=== PATIENT | male | born 1950 | race Caucasian/White ===

== ENCOUNTER 2017-07-12 05:40 | Day surgery (SDC) | payer BC, SELFPAY ==
[2017-07-12] VITALS (7 sets, daily range): BP systolic 103–133; BP diastolic 59–70; PULSE 55–64; RESP 16; TEMP 36.1–36.6; O2SAT 93–98; BMI 26.6
[2017-07-12] MEDS: Cefazolin 1 GM/50 ML BAG IV (07:08)
[2017-07-12] MEDS: Bupivacaine Mpf 0.5% 30 ML VIAL (07:30)
--- NOTE | 2017-07-12 07:34 | OP.PCM_ITS ---
Report of Operation Date of Procedure: 07/12/17 Pre-Operative Diagnosis: Left carpal tunnel syndrome Post-Operative Diagnosis: Left carpal tunnel syndrome Surgery/Procedure Performed:: Left carpal tunnel release Description of Surgical Findings:: Complete release transverse carpal ligament fleet service clerk: None Type of Anesthesia:: Block,Luca Anesthesiologist: Bryce Chamberlain Special Medications: 1 g Ancef Estimated Blood Loss (mL): 1 Fluids Replaced: 500 ml Description of Procedure: Brief history operative indications: 56-year-old male with failed conservative treatment of left carpal tunnel syndrome patient wished to proceed with left open carpal tunnel release. After discussing risks and benefits including but not limited to blood loss, DVTs, PEs , neurovascular damage, infection, hematoma and general risk of anesthesia, the patient demonstrated understanding wish to proceed with left open carpal tunnel release Procedure: On the date of the procedure, the patient's left upper extremity was marked in the preoperative area. Patient was taken back to the operating room, where the tourniquet was placed on the right upper extremity. Patient was given light sedation. All bony prominences are identified well-padded. Anesthesia assumed control C-spine and airway and remained in control throughout the remainder the procedure. Luca block was administered by anesthesia. The left upper extremity was prepped in sterile fashion. Surgeon then scrub. Upon reentering the room, the left upper extremity was prepped in a standard orthopedic fashion. A timeout was called and everyone agreed upon the side, the site, the procedure to be performed, patient identity and antibiotics given. The incision was marked out. Incision was taken at the skin subtenons tissue fat down to fascia. Fascia was then lightly tethered until the median nerve was visible. A Paradise was placed proximally and distally, and then scissors were placed proximally and distally to release the transverse carpal ligament. During the release the others were never completely closed. The Paradise was then placed proximally and distally once more to verify the transverse carpal ligament had been adequately released. The wound was then copiously irrigated out with normal saline. Wound was then closed using 3-0 nylon suture. 10 cc of 50-50 mixture of 1% lidocaine and 0.5% Sensorcaine without epinephrine injection was given. Xeroform dressing was placed, sterile dressing was placed, compressive dressing was placed. Tourniquet was let down. Volar splint was placed. Patient was awakened by anesthesia and transferred to the PACU for recovery. Postoperative plan: The patient will follow up in 2 weeks for removal splint removal sutures. At that time if they are doing well they will follow-up as needed. - Complications none - Admit VTE Documentation VTE Present on Admission: No VTE Mechan Device Prophylaxis: SCD's VTE Pharm Prophylaxis ordered?: No Reason prophylaxis not ordered:: Treatment Not Indicated
[2017-07-12] MEDS: Ketorolac 30 MG/ML Syringe IV (07:57)
== END 2017-07-12 08:27 | disposition home or self-care (01) ==
LOC: SDC 05:41 → AC 05:42
PROVIDERS: Family Provider Nurse Practitioner; PCP Nurse Practitioner; Visit Provider Specialist
PROC: (CPT 64721; principal; 2017-07-12 07:00)
DX: G56.02 Carpal tunnel syndrome, left upper limb (principal); G25.81 Restless legs syndrome; Z79.899 Other long term (current) drug therapy
CPT/HCPCS: 01810; 64721; J7120

== ENCOUNTER 2019-11-19 06:22 | Emergency (ER) | payer MEDICARE, OTHER, SELFPAY ==
[2019-11-19 06:23] VITALS: BP 119/71; PULSE 85; RESP 16; TEMP 36.8; O2SAT 96; BMI 25.2
--- NOTE | 2019-11-19 06:30 | US_ITS ---
STUDY: SCROTUM ULTRASOUND REASON FOR EXAM: Male, 69 years old. RIGHT TESTICLE PAIN X 3 DAYS -- CURRENT UTI -- ON ANTIBIOTICS TECHNIQUE: Ultrasound evaluation of the scrotum was performed with color Doppler and static reza-scale imaging. COMPARISON: None. FINDINGS: RIGHT TESTICLE INTRATESTICULAR: There is a normal size of the right testicle. The right testicle measures 4.5 x 3.4 x 2.9 cm. There is a homogenous echotexture. There is normal arterial and normal venous vascularity. There is no demonstrated right testicular mass or cyst. EXTRATESTICULAR: The epididymis is enlarged.. There is increased (hyperemic) vascularity of the epididymis. There are well-defined cystic structure within the epididymis, without internal echoes, consistent with epididymal cyst. There is a small hydrocele. There is no demonstrated varicocele. Increased flow on VALSALVA maneuver involving the right epididymis likely related to hyperemia rather than varicocele. There is no demonstrated extratesticular mass or cyst. LEFT TESTICLE INTRATESTICULAR: There is a normal size of the left testicle. The left testicle measures 4.7 x 3.8 x 2.8 cm. There is a homogenous echotexture. There is normal arterial and normal venous vascularity. There is no demonstrated left testicular mass or cyst. EXTRATESTICULAR: The epididymis is enlarged. There is normal vascularity of the epididymis. There is a well-defined cystic structure within the epididymis, without internal echoes, consistent with an epididymal cyst. There is a small hydrocele. There is no demonstrated varicocele. There is no demonstrated extratesticular mass or cyst. US/Testicular with Arterial Flow IMPRESSION: 1. Normal bilateral testicles. 2. Bilateral epididymal enlargement with hypervascularity suggesting epididymitis. 3. Small bilateral hydroceles. Electronically Signed: Jewel Barnett MD ([place]) at 8:04 EDT , Service support ,
--- NOTE | 2019-11-19 06:31 | ED.DCSUM_ITS ---
History of Present Illness Chief Complaint: Complaint Informant: Patient Onset: Days Context: Gradual Onset Timing: Continuous Current Severity: Moderate Maximum Severity: Moderate Narrative: The patient is a 69-year-old male who is otherwise healthy the presents to the emergency department with right testicular pain and swelling. Patient states that he was diagnosed with urinary tract infection. He has been on trimethoprim since . He states on Tuesday, he began have a dull ache in his right testicle. Over the weekend, he has had increased swelling and pain. He states that he does have intermittent fevers mostly in the afternoon. He denies any chills or sweats. He denies any shortness of breath. He states that today, he noticed the swelling is worse and it was more painful. He presented here for further evaluation. He denies any rectal pain. He denies any change in bowel movements. Prior similar symptoms: No Recent Illness/Hospitalization: No Past Medical History - Allergies and Home Meds Allergies/Adverse Reactions: Allergies Sulfa (Sulfonamide Antibiotics) Allergy (Verified 11/19/19 06:28) Unknown AGUSTIN Allergy (Uncoded 11/19/19 06:28) Angioedema PISTACHIO Allergy (Uncoded 11/19/19 06:28) Angioedema Primary Care Physician: Yudelka Sheikh TREE WORKER, TREE WORKER-C [Primary Care Provider] - Prior records reviewed: Yes Past Medical History: - - BPH Surgical History: noncontributory Smoking Status: Never smoker Review of Systems General: Reports: Fever. Denies: Chills, Sweats Eyes: Denies: Visual changes - bilaterally, Diplopia ENT: Denies: Rhinorrhea, Sore throat Cardiovascular: Denies: Chest pain, Palpitations Respiratory: Denies: Dyspnea, Cough, Dyspnea on exertion Gastrointestinal: Denies: Abdominal pain, Nausea, Vomiting, Diarrhea, Melena, Hematochezia Genitourinary: Reports: Dysuria. Denies: Hematuria, Frequency Musculoskeletal: Denies: Back pain, Extremity Pain Skin: Denies: Rash, Wounds Neurological: Denies: Headache, Weakness, Numbness Physical Exam Vital Signs/Narrative: Vital Signs Temp Pulse Resp BP Pulse Ox 11/19/19 06:23 98.2 F 85 16 119/71 96 Inital Vital Signs reviewed: Yes General: Well nourished, Well developed, No Acute Distress Head: Normocephalic, Atraumatic Eyes: Perrl, EOMI ENT: Moist mucous membranes, No rhinorrhea Neck: Supple, Nontender Cardiovascular: Regular rate, Regular rhythm, No murmurs Respiratory: No distress, CTA bilaterally, Chest nontender Abdomen: Soft, Nontender, Nondistended, Normal bowel sounds : - - Testicular exam shows tender epididymis on the right. Mild erythema. No cellulitis. No Gerardo's. Cremasteric preserved. Back: Nontender, Normal Inspection Extremities: Nontender, No edema Skin: Normal color, No rash Neurological: Alert, Oriented x3, Cranial nerves II-XII grossly intact, Normal Strength, Normal Sensation Psychological: Normal affect, Normal Mood Diagnostic/Tx/Re-eval Clinical Impression(s) from Imaging Studies Testicular Ultrasound 11/19/19 06:30 IMPRESSION: 1. Normal bilateral testicles. 2. Bilateral epididymal enlargement with hypervascularity suggesting epididymitis. 3. Small bilateral hydroceles. Electronically Signed: Jewel Barnett MD ([place]) at 8:04 EDT , Service support , Abnormal Lab Results 11/19/19 11/19/19 11/19/19 06:35 06:35 06:40 WBC 9.5 RBC 4.03 L Hgb 13.0 Hct 39.2 L MCV 97.3 H MCH 32.3 H MCHC 33.2 RDW Std Deviation 41.5 RDW Coeff of Edson 11.6 Plt Count 238 MPV 8.7 Immature Gran % (Auto) 0.400 Neut % (Auto) 71.0 H Lymph % (Auto) 16.0 L [place] % (Auto) 10.8 H Eos % (Auto) 1.5 Baso % (Auto) 0.3 Absolute Neuts (auto) 6.7 Absolute Lymphs (auto) 1.51 Nucleated RBC % 0 Sodium 136 Potassium 3.9 Chloride 106 Carbon Dioxide 25.0 Anion Gap 5 BUN 15 Creatinine 1.30 Estim Creat Clear Calc 56.31 Est GFR (MDRD) Af Amer 70 Est GFR (MDRD) Non-Af 58 L BUN/Creatinine Ratio 11.5 Glucose 122 H Calcium 9.0 Total Bilirubin 0.70 AST 26 ALT 43 Alkaline Phosphatase 85 Total Protein 7.2 Albumin 3.2 Globulin 4.0 Albumin/Globulin Ratio 0.8 L Urine Color Yellow Urine Clarity Clear Urine pH 6.0 Ur Specific [place] 1.015 Urine Protein Negative Urine Glucose (UA) Normal Urine Ketones Negative Urine Occult Blood Negative Urine Nitrite Negative Urine Bilirubin Negative Urine Urobilinogen Normal Ur Leukocyte Esterase 500 H Urine RBC 10-25 SEEN Urine WBC 0 SEEN Ur Squamous Epith Cells 0 SEEN Urine Bacteria 0 SEEN Urine Mucus 0 SEEN - Medical Decision Making The patient presents with right testicular pain and swelling. It is worsened over the past 2 days. He has been on trimethoprim for UTI. Clinically, I do suspect that his symptoms are likely secondary to epididymitis. With his intermittent fevers, the patient will undergo metabolic work-up. The plan will be for him to undergo ultrasound which will be early this morning. Final disposition is pending. His ultrasound and laboratory markers will be followed up by oncoming physician. Clinically, he does appear well. Ultrasound is con sistent with epididymitis. My plan was to keep the patient on Cipro, however he states that his had significant tendinopathy and he does not want to take it. Because of this, I will cover him with Augmentin and have him continue the trimethoprim. Based on his drug allergies this seems to be the only option. He is comfortable with this plan of care. Impression 1. Right testicular pain 2. Epididymitis ED Disposition - Plan for ED Patient: Instructions: Epididymitis Prescriptions: Amox/Clavulanate Tablet [Augmentin Tablet] 875 mg PO Q12H #20 tab Prescription Printed Referrals: Yudelka Sheikh NP, TREE WORKER-C [Primary Care Provider] -
[2019-11-19] MEDS: Ketorolac 30 MG/ML Syringe IV (06:39)
[2019-11-19 06:41] LABS: Absolute Lymphocyte Count 1.51 X10^3/uL (0.83-4.51); Absolute Neutrophil Count 6.7 X10^3/uL (2.0-7.7); Basophil# 0.03 X10^3/uL; Basophil% 0.3 % (0-1); Eosinophil# 0.14 X10^3/uL; Eosinophils% 1.5 % (0-5); Hematocrit 39.2 % (40-54); Lymphocyte # 1.51 X10^3/ul (4.0); Mean Corp Hgb Conc 33.2 g/dL (32-36); Mean Corpuscular Hgb 32.3 pg (27.0-32.0); Mean Corpuscular Volume 97.3 fL (80-94); Mean Platelet Vol. 8.7 fl (6.2-12.0); Monocyte# 1.02 X10^3/uL; Monocyte% 10.8 % (0-10); NRBC Flagged by Analyzer 0 % (0-5); Neutrophil # 6.71 X10^3/uL (2.7-7.7); Platelet Count 238 K/mm3 (150-450); RBC Distribution Width CV 11.6 % (11.6-14.6); RBC Distribution Width SD 41.5 fl (35.1-43.9); Red Blood Count 4.03 M/mm3 (4.6-6.2); White Blood Count 9.5 K/mm3 (4.4-11.0)
[2019-11-19 06:44] LABS: Bacteria 0 SEEN /hpf (None Seen); Mucous, Urine 0 SEEN /hpf (<or=2+); Squamous Epithelial Cells - UA 0 SEEN /hpf (0-5); White Blood Cells 0 SEEN /hpf (0-5)
[2019-11-19 06:47] LABS: Color, Urine Yellow (Yellow); Glucose, Dipstick Normal (Normal); Ketone-Dipstick Negative (Negative); Leukocyte Esterase-Dipstick 500 /ul (Negative); Nitrite-Dipstick Negative (Negative); Occult Blood-Urine Negative /ul (Negative); Protein-Dipstick Negative (Negative); Specific Gravity, Urine 1.015 (1.002-1.030); Urine Bilirubin Dipstick Negative (Negative); Urine Clarity Clear (Clear); Urine Urobilinogen Normal (Normal)
[2019-11-19 06:53] LABS: Red Blood Cells-Urine 10-25 SEEN /hpf (0-5)
[2019-11-19 07:01] LABS: ALB/GLOB Ratio 0.8 RATIO (0.9-2.4); AST(SGOT) 26 U/L (15-37); Alanine Aminotransfer ALT/SGPT 43 U/L (16-61); Albumin, Serum 3.2 g/dL (3.2-5.0); Alkaline Phosphatase 85 U/L (45-117); Anion Gap 5 (5-15); BUN 15 mg/dL (7-18); BUN/Creat Ratio 11.5 RATIO (10-20); Chloride 106 mmol/L (98-107); EST Glomerular Filtration Rate 58 mL/min (>60); Est Glom Filt Rate - Afr Amer 70 mL/min (>60); Estimated Creatinine Clearance 56.31 ml/min; Glucose 122 mg/dL (74-106); Potassium 3.9 mmol/L (3.5-5.1); Protein, Total 7.2 g/dL (6.4-8.2); Sodium Level 136 mmol/L (136-145)
[2019-11-19 08:21] VITALS: BP 127/59; PULSE 63; RESP 15; O2SAT 98
== END 2019-11-19 08:22 | disposition home or self-care (01) ==
PROVIDERS: Emergency Provider Emergency Medicine; PCP Nurse Practitioner
DX: N50.811 Right testicular pain (principal); N45.1 Epididymitis; N39.0 Urinary tract infection, site not specified; N40.0 Benign prostatic hyperplasia without lower urinary tract symptoms
CPT/HCPCS: 76870; 80053; 81001; 85025; 87086; 93976; 96374; 99283; A4216

== ENCOUNTER → 2019-11-20 | Outpatient (CLI) | payer MEDICARE, OTHER, SELFPAY ==
[2019-11-19 06:23] VITALS: BMI 25.2
== END | disposition home or self-care (01) ==
LOC: LABSPEC 16:02
PROVIDERS: PCP Nurse Practitioner; Referring Provider Urology; Visit Provider Urology
DX: N39.0 Urinary tract infection, site not specified (principal)
CPT/HCPCS: 87086

== ENCOUNTER → 2019-12-22 07:31 | Outpatient (CLI) | payer MEDICARE, OTHER, SELFPAY ==
[2019-12-22 07:53] LABS: Bacteria 0 SEEN /hpf (None Seen); Mucous, Urine 0 SEEN /hpf (<or=2+); Red Blood Cells-Urine 0 SEEN /hpf (0-5); Squamous Epithelial Cells - UA 0 SEEN /hpf (0-5); White Blood Cells 0 SEEN /hpf (0-5)
[2019-12-22 08:42] LABS: Hematocrit 39.1 % (40-54); Hemoglobin 12.9 g/dL (13.0-16.5); Mean Corpuscular Hgb 32.4 pg (27.0-32.0); Mean Corpuscular Volume 98.2 fL (80-94); Mean Platelet Vol. 9.7 fl (6.2-12.0); Platelet Count 244 K/mm3 (150-450); RBC Distribution Width CV 11.9 % (11.6-14.6); RBC Distribution Width SD 43.6 fl (35.1-43.9); Red Blood Count 3.98 M/mm3 (4.6-6.2); White Blood Count 4.9 K/mm3 (4.4-11.0)
[2019-12-22 08:54] LABS: Color, Urine Yellow (Yellow); Glucose, Dipstick Normal (Normal); Ketone-Dipstick Negative (Negative); Leukocyte Esterase-Dipstick Negative /ul (Negative); Nitrite-Dipstick Negative (Negative); Occult Blood-Urine Negative /ul (Negative); Protein-Dipstick Negative (Negative); Urine Bilirubin Dipstick Negative (Negative); Urine Clarity Clear (Clear); Urine Urobilinogen Normal (Normal)
[2019-12-22 09:17] LABS: AST(SGOT) 22 U/L (15-37); Alanine Aminotransfer ALT/SGPT 33 U/L (16-61); Albumin, Serum 3.4 g/dL (3.2-5.0); Alkaline Phosphatase 67 U/L (45-117); Anion Gap 5 (5-15); BUN 14 mg/dL (7-18); BUN/Creat Ratio 13.2 RATIO (10-20); Calcium,Total 8.5 mg/dL (8.5-10.1); Chloride 105 mmol/L (98-107); Cholesterol 207 mg/dL (200); Creatinine, Serum 1.06 mg/dL (0.70-1.30); EST Glomerular Filtration Rate 73 mL/min (>60); Est Glom Filt Rate - Afr Amer 89 mL/min (>60); Globulin 3.3 g/dL (2.2-4.2); Glucose 94 mg/dL (74-106); High Density Lipoprotein 74 mg/dL; Potassium 4.2 mmol/L (3.5-5.1); Protein, Total 6.7 g/dL (6.4-8.2); Sodium Level 137 mmol/L (136-145); Triglycerides 72 mg/dL; Very Low Density Lipoprotein 14 mg/dL (5-40)
[2019-12-22 09:19] LABS: Hemoglobin A1c 5.5 % (3.8-5.6)
== END ==
PROVIDERS: PCP Nurse Practitioner; Referring Provider Nurse Practitioner; Visit Provider Nurse Practitioner
DX: E78.00 Pure hypercholesterolemia, unspecified (principal); R73.01 Impaired fasting glucose; Z12.5 Encounter for screening for malignant neoplasm of prostate; R79.9 Abnormal finding of blood chemistry, unspecified; R35.0 Frequency of micturition
CPT/HCPCS: 36415; 80053; 80061; 81001; 83036; 84153; 85027; G0103

== ENCOUNTER → 2019-12-29 08:04 | Outpatient (CLI) | payer MEDICARE, OTHER, SELFPAY ==
[2019-12-29 08:49] LABS: Platelet Count 258 K/mm3 (150-450); RET-HE 36.5 pg (30-35); Reticulocyte Count 1.23 % (0.5-1.5)
[2019-12-29 09:23] LABS: Ferritin 66 ng/mL (26-388); Iron 100 ug/dL (65-175); Iron Binding Capacity,Total 323 ug/dL (250-450); LDH 203 U/L (87-241)
[2019-12-31 09:17] LABS: Vitamin B12 460 pg/mL (211-911)
== END ==
PROVIDERS: PCP Nurse Practitioner; Referring Provider Nurse Practitioner; Visit Provider Nurse Practitioner
DX: D64.9 Anemia, unspecified (principal)
CPT/HCPCS: 36415; 82607; 82728; 82746; 83540; 83550; 83615; 85045

== ENCOUNTER 2020-10-14 06:34 | Emergency (ER) | payer OTHER, MEDICARE, SELFPAY ==
[2020-10-14 06:34] VITALS: BP 165/101; PULSE 72; RESP 18; TEMP 36.6; O2SAT 97; BMI 27.7
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
--- NOTE | 2020-10-14 07:06 | RAD_ITS ---
STUDY: X-RAY - CERVICAL SPINE REASON FOR EXAM: Male, 70 years old. INJURY TECHNIQUE: 5 view(s) of the cervical spine were obtained. COMPARISON: 02/11/2017 FINDINGS: There are degenerative changes of the anterior atlantoaxial articulation. Normal odontoid process. Normal cervical lordosis. There is multi-level endplate spondylosis. Stable mild concave endplate C6 and C7. Stable minimal posterior disc space narrowing lower cervical spine. There are atherosclerotic vascular calcifications of the carotid arteries. RAD/Cerv Spine 2 or 3 Views IMPRESSION: Stable mild degenerative changes. No compression injury or traumatic malalignment detected. Electronically Signed: Jojo Gann MD at 7:48 EDT , Service support ,
--- NOTE | 2020-10-14 07:06 | RAD_ITS ---
STUDY: X-RAY CHEST REASON FOR EXAM: Male, 70 years old. INJURY TECHNIQUE: PA and lateral views of the chest. COMPARISON: 11/12/2013 FINDINGS: Stable mild elevation right hemidiaphragm and interstitial prominence in the right greater than left base. There is no focal parenchymal abnormality. There is no demonstrated pneumothorax. Stable hyperinflation. There is no demonstrated pleural abnormality. Normal size heart. Normal mediastinum and iveth. Normal visualized pulmonary arteries. Normal visualized aortic arch and descending thoracic aorta. Mild osteopenia, minimal degenerative changes. Normal visualized ribs, clavicles, and shoulders. There is no demonstrated abnormality of the visualized soft tissue structures of the upper abdomen. RAD/Chest PA and Lateral IMPRESSION: Stable mild elevation right hemidiaphragm, mild compression of the dependent lung parenchyma. There is no demonstrated pneumothorax. No acute displaced osseous injury detected on submitted image. Electronically Signed: Jojo Gann MD at 7:51 EDT , Service support ,
--- NOTE | 2020-10-14 07:06 | RAD_ITS ---
STUDY: X-RAY - RIGHT KNEE REASON FOR EXAM: Male, 70 years old. INJURY TECHNIQUE: 4 view(s) of the knee. COMPARISON: None. FINDINGS: Normal visualized distal femur. Normal visualized proximal tibia and fibula. Normal proximal tibiofibular articulation. Minimal narrowing of the medial femorotibial compartment. Normal lateral femorotibial compartment. Normal patellofemoral articulation. There is no demonstrated joint effusion. The soft tissue structures are unremarkable. RAD/Knee 4 or More Views IMPRESSION: Minimal degenerative changes. There is no acute displaced fracture or dislocation. Electronically Signed: Jojo Gann MD at 7:49 EDT , Service support ,
[2020-10-14] MEDS: Ibuprofen 400 MG Tablet 800 MG PO (07:56)
[2020-10-14] MEDS: cycloBENZAPRine HCl 10 MG Tablet PO (07:57)
== END 2020-10-14 08:45 | disposition home or self-care (01) ==
PROVIDERS: Emergency Provider Emergency Medicine; PCP Nurse Practitioner
DX: S83.91XA Sprain of unspecified site of right knee, initial encounter (principal); S20.219A Contusion of unspecified front wall of thorax, initial encounter; S16.1XXA Strain of muscle, fascia and tendon at neck level, initial encounter; S80.01XA Contusion of right knee, initial encounter; S80.02XA Contusion of left knee, initial encounter; V63.5XXA Driver of heavy transport vehicle injured in collision with car, pick-up truck or van in traffic accident, initial encounter; Y93.9 Activity, unspecified; Y92.9 Unspecified place or not applicable; N40.0 Benign prostatic hyperplasia without lower urinary tract symptoms; Z79.899 Other long term (current) drug therapy
CPT/HCPCS: 71046; 72040; 73564; 99283

== ENCOUNTER → 2020-10-23 12:04 | Outpatient (CLI) | payer OTHER, MEDICARE, SELFPAY ==
--- NOTE | 2020-10-23 12:10 | CT_ITS ---
INDICATION: CHEST WALL CONTUSION EXAMINATION: CT CHEST WITH CONTRAST - CT Chest W/ Contrast Injection TECHNIQUE: Helically acquired images were obtained of the chest following IV contrast. A radiation dose optimization technique was used for this scan. IV Contrast dosage and agent: 100 mL of ISOVUE-300. Radiation dose (DLP) : 425.86 mGycm COMPARISON: None. FINDINGS: Subtle increased density visualized in the sternum inferior to the sternal angle between the second and third sternal notch best visualized on the sagittal reconstructed series 601 image 170, subtle lucency visualized in the anterior cortex seen on sagittal series 170 and 171, subtle indentation visualized posteriorly seen on sagittal series 171, cannot rule out a fracture and bone contusion at this level. LUNGS, PLEURA AND LARGE AIRWAYS: No masses, consolidation, or edema. No pleural effusion or thickening. No pneumothorax. THYROID: No thyroid lesions. HEART AND PERICARDIUM: Heart size is normal. No pericardial effusion. VESSELS: Thoracic aorta is not dilated. No aortic dissection. Four-vessel aortic arch is visualized. No obvious central pulmonary embolism although this study was not performed with the pulmonary embolism protocol. MEDIASTINUM AND KVNG: No mediastinal or hilar adenopathy. Esophagus is unremarkable. Small type I hiatal hernia. UPPER ABDOMEN: No acute pathology. Fullness in the pelvicalyceal system is visualized bilaterally. BONES: No suspicious lytic or blastic abnormality. CT/Chest WITH Contrast IMPRESSION: Subtle increased density visualized in the sternum inferior to the sternal angle between the second and third sternal notch best visualized on the sagittal reconstructed series 601 image 170, subtle lucency visualized in the anterior cortex seen on sagittal series 170 and 171, subtle indentation visualized posteriorly seen on sagittal series 171, cannot rule out a fracture and bone contusion at this level. Would recommend clinical correlation and if this is the location of the patient''s pain. No evidence of parenchymal lung contusions pneumothorax or pleural fluid. Fullness of bilateral kidney pelvicalyceal system is visualized, would recommend clinical correlation. Electronically Signed: Kedar Lizama MD at 14:28 EDT Tel , Service support ,
[2020-10-23 13:16] LABS: CREATININE FINGERSTICK 0.8 mg/dL (0.70-1.30)
== END ==
PROVIDERS: PCP Nurse Practitioner; Referring Provider Emergency Medicine; Visit Provider Emergency Medicine
DX: S20.213A Contusion of bilateral front wall of thorax, initial encounter (principal)
CPT/HCPCS: 71260; Q9967; A4216

== ENCOUNTER → 2020-11-06 | Outpatient (CLI) | payer MEDICARE, OTHER, SELFPAY | END | disposition home or self-care (01) | LOC: LABSPEC 11:50 | PROVIDERS: PCP Nurse Practitioner; Visit Provider Physician Assistant | DX: Z11.52 Encounter for screening for COVID-19 (principal) | CPT/HCPCS: 87635; U0005; U0003 ==

== ENCOUNTER → 2020-11-27 13:09 | Outpatient (CLI) | payer OTHER, SELFPAY ==
[2020-11-27 13:45] LABS: CREATININE FINGERSTICK 1.1 mg/dL (0.70-1.30); EGFR FINGERSTICK > 60.0000 mL/min (>60)
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
== END ==
PROVIDERS: PCP Nurse Practitioner; Referring Provider Family Medicine; Visit Provider Family Medicine
DX: S23.429A Unspecified sprain of sternum, initial encounter (principal); S20.213A Contusion of bilateral front wall of thorax, initial encounter
CPT/HCPCS: 71260; Q9967; A4216

== ENCOUNTER → 2020-12-03 15:36 | Outpatient (CLI) | payer OTHER, SELFPAY ==
--- NOTE | 2020-12-03 15:41 | MRI_ITS ---
STUDY: MR Knee W/O Contrast 12/03/2020 7:46 PM REASON FOR EXAM: Male, 70 years old. SPRAIN TECHNIQUE: Standardized fat and water weighted pulse sequences were obtained in all 3 orthogonal planes. COMPARISON: None. FINDINGS: Normal medial meniscus. Normal hyaline cartilage of the medial femorotibial compartment. Normal medial femoral condyle and tibial plateau. Normal medial collateral ligamentous complex (MCL). Normal distal semimembranosus, gracilis and semitendinosus tendons. Normal lateral meniscus. Normal hyaline cartilage of the lateral femorotibial compartment. Normal lateral femoral condyle and tibial plateau. Normal proximal tibiofibular articulation. Normal lateral collateral (fibular) ligament. Normal popliteus tendon. Normal biceps femoris tendon. Normal anterior cruciate ligament (ACL). There is diffuse thickening of the PCL. This is suggestive of partial tear. Normal congruent patellofemoral articulation. Normal hyaline cartilage of the patellofemoral compartment. There is a partial sprain of the medial parapatellar retinaculum. Bone bruise of the medial aspect of the patella. Normal quadriceps tendon. Normal patellar tendon. Normal Hoffa''s fat pad. There is joint effusion. Popliteal cyst. The soft tissues are unremarkable. The otherwise visualized osseous structures are unremarkable. MRI/Lower Ext Joint Only (Routine) IMPRESSION: There is a partial sprain of the medial parapatellar retinaculum. Bone bruise of the medial aspect of the patella. Small suprapatellar effusion. There is diffuse thickening of the PCL. This is suggestive of partial tear or strain. Electronically Signed: Miller Major MD at 19:53 EDT , Service support ,
== END ==
PROVIDERS: PCP Nurse Practitioner; Visit Provider Family Medicine
DX: S83.91XA Sprain of unspecified site of right knee, initial encounter (principal)
CPT/HCPCS: 73721

== ENCOUNTER → 2021-01-12 07:06 | Outpatient (CLI) | payer OTHER, SELFPAY ==
--- NOTE | 2021-01-12 07:08 | CT_ITS ---
STUDY: CT CHEST WITH CONTRAST REASON FOR EXAM: Male, 70 years old. STERNAL FX RADIATION DOSAGE (If Supplied By Facility): CTDIvol = ( 14.94 ) mGy, DLP = ( 594.75 ) mGycm TECHNIQUE: Transaxial imaging was performed following intravenous administration of IV 100mL Isovue-300. Multiplanar coronal and sagittal images were reformatted. Individualized dose optimization techniques were used for this CT. COMPARISON: 11/27/2020 FINDINGS: No pulmonary nodule/mass/airspace disease. There is no demonstrated pleural abnormality. Normal heart and pericardium. There are calcifications of the coronary arteries. Normal mediastinum. Normal hilar regions. Normal enhanced pulmonary arteries. Normal variant origin of the left vertebral artery arising from the thoracic aorta. Upper sternal fracture is redemonstrated with mild degree of comminution and displaced fragments. However, no significant change in alignment since the prior study. No significant bridging bone is documented on current exam. There is no demonstrated abnormality of the visualized upper abdomen. CT/Chest WITH Contrast IMPRESSION: Unchanged upper sternal fracture since November 2020 Electronically Signed: Jewel Barnett MD ([facility]) at 16:40 EST , Service support ,
[2021-01-12 07:21] LABS: CREATININE FINGERSTICK 0.8 mg/dL (0.70-1.30); EGFR FINGERSTICK > 60.0000 mL/min (>60)
== END ==
PROVIDERS: PCP Nurse Practitioner; Referring Provider Family Medicine; Visit Provider Family Medicine
DX: S22.20XA Unspecified fracture of sternum, initial encounter for closed fracture (principal)
CPT/HCPCS: 71260; Q9967; A4216

== ENCOUNTER 2021-03-23 09:30 | Emergency (ER) | payer MEDICARE, OTHER, SELFPAY ==
[2021-03-23 09:31] VITALS: BP 109/70; PULSE 93; RESP 18; TEMP 37; O2SAT 100; BMI 27.2
[2021-03-23 09:41] VITALS: BP 109/70; PULSE 93; RESP 18; TEMP 37; O2SAT 100
--- NOTE | 2021-03-23 09:46 | EX.ED.DYSGE1 ---
HPI History of Present Illness Chief Complaint: General Illness Informant: patient Onset/Context/Timing Onset: Days (9-10) Context: Gradual Onset Timing: Continuous Associated Symptoms Associated Symptoms ED: cough Narrative Narrative: Patient on day #10 of respiratory illness, he states it was prominent symptoms that he feels very fatigued. Cough has been mostly nonproductive now it is mildly productive of some clear sputum. Myalgias, headaches, some nasal congestion or rhinorrhea without sinus pressure pain. No earache. He is having fevers. Unvaccinated against COVID, unvaccinated against influenza. He states otherwise he is healthy and currently takes no medications except for [id number] cold medication for the symptoms. No known contact with anyone with Covid. He states he did a home rapid test 3 days into the illness that was negative. Patient denies any dyspnea. He is having some bronchospasm episodes and he had a an episode of posttussive emesis. [facility] Medical History (Updated 03/23/21 @ 10:[address] Matthew Sahni MD) Benign prostatic hyperplasia Chest pain Hay fever Home Medications tamsulosin 0.4 mg PO DAILY 05/28/14 [History Last Taken Unknown] ibuprofen 200 mg capsule 200 mg PO Q6H PRN 11/05/20 [History Last Taken Unknown] Allergy/AdvReac Type Severity Reaction Status Date / Time Sulfa (Sulfonamide Allergy Unknown Verified 03/23/21 09:33 Antibiotics) AGUSTIN Allergy Angioedema Uncoded 03/23/21 09:33 PISTACHIO Allergy Angioedema Uncoded 03/23/21 09:33 Family History (Updated 11/05/20 @ 14:26 by Mariposa Nieves) Mother Kidney disease Surgical History History of carpal tunnel release Social History (Updated 10/14/20 @ 07:[address] Isiah Porras, ) Smoking Status: Never smoker substance use type: does not use ROS ROS ED Constitutional Constitutional ED: Reports body ache(s), chills, fatigue, fever(s), headache(s) and malaise Eyes Eyes: Denies change in vision or diplopia ENT ENT ED: Denies rhinorrhea or sore throat Cardiovascular Cardiovascular: Denies chest pain or palpitations Respiratory/Chest Respiratory/Chest: Reports cough; Denies dyspnea or dyspnea on exertion Gastrointestinal Gastrointestinal: Denies abdominal pain, diarrhea, nausea or vomiting Genitourinary Genitourinary ED: Denies dysuria or hematuria Musculoskeletal Musculoskeletal: Denies back pain or neck pain Integumentary Denies abscess or rash Neurologic Neurologic: Reports headache(s); Denies paresthesias or weakness Psychiatric Psychiatric: Denies anxiety or suicidal thoughts EXAM Physical Exam Const Vital Signs: 03/23/21 09:31 03/23/21 09:41 Temperature 98.6 F 98.6 F Temperature Source Temporal Temporal Pulse Rate 93 93 Respiratory Rate 18 18 Respiratory Effort Normal Non-Labored Respiratory Pattern Normal Blood Pressure 109/70 109/70 Blood Pressure Mean 83 83 Pulse Ox 100 100 Oxygen Delivery Method Room Air Room Air Positive well nourished and well developed Constitutional Narrative: Well-appearing, no distress General Appearance ED: well developed and NAD HEENT Reports moist mucous membranes normocephalic and atraumatic Eyes PERRL and EOMs intact bilaterally Neck full ROM, no lymphadenopathy and supple Resp normal respiratory effort and clear to auscultation bilaterally Cardio regular rate, regular rhythm and no murmurs Rate: Negative for tachycardic GI non-tender and non-distended Auscultation: normoactive bowel sounds Palpation: soft Back/Spine no CVA tenderness General Back: other FROM Extremity normal to inspection and no calf tenderness General Extremety ED: Negative for edema, pulses abnormal or tenderness General Extremity: Negative for edema or pulses abnormal Neuro oriented x3, CN's II-XII intact bilaterally and no sensory deficits noted Sensorium / Orientation: awake and alert Motor Exam: strength 5/5 throughout Skin no rashes or lesions noted and no wounds MDM MDM MDM Narrative Medical decision making narrative: Patient's rapid Covid returned positive, which is very likely a true positive given his symptoms. His oxygenation is excellent at 100% on room air and his vital signs are normal. I do not think he needs any further testing. Since he is currently on day 10, there are no indications for other medications at this time including monoclonal antibody therapy. I advised him to continue watching his oxygen levels at home with a portable pulse oximeter, and we discussed reasons to return. Supportive care advised. Discharge Plan Triage Chief Complaint: General Illness ED Provider: Matthew Sahni Dx/Rx/DC Orders Clinical Impression: COVID-19 Instructions: Coronavirus Disease 2019 (COVID-19): Caring for Yourself or Others Prescriptions: No Action ibuprofen 200 mg capsule 200 mg PO Q6H PRNRF: 0 tamsulosin 0.4 MG capsule 0.4 mg PO DAILY RF: 0 Primary Care Provider: Yudelka Sheikh NP Referrals: Yudelka Sheikh NP, SIGNAL TECHNICIAN-C [Primary Care Provider] - As Needed Activity Restrictions/Additional Instructions: Try to get a home portable pulse oximeter and closely watch your oxygen levels periodically. If you stay below 90% for more than a minute or so, and/or you are feeling like your breathing is getting worse, return to the emergency department for further evaluation. Disposition Disposition: Home, Self Care
--- NOTE | 2021-03-24 12:20 | CASEMGMT ---
ADRIANO INMAN ED follow-up: Date of ED visit: 03/23/2021 ER presenting complaint: general illness COVID positive RN HENNY placed call to patient's telephone number listed on demographics, patient answered. Patient states making progress but still fatigued today. Paitent monitoring pulse ox and SpO2 97% on room air today. Patient instructed to quarantine. Patient states eating well today and drinking lots of water. Reports has virtual PCP appointment later today and plans to keep appointment. Patient instructed on symptomatic treatment, staying hydrated and red flag signs and symptoms to monitor for. Patient verbalized understanding. Patient denies questions or concerns. ADRIANO Bosch CM
== END 2021-03-23 10:56 | disposition home or self-care (01) ==
PROVIDERS: Emergency Provider Emergency Medicine; PCP Nurse Practitioner; Visit Provider Emergency Medicine
DX: U07.1 COVID-19 (principal); N40.0 Benign prostatic hyperplasia without lower urinary tract symptoms; Z79.899 Other long term (current) drug therapy
CPT/HCPCS: 87426; 87804; 99282

== ENCOUNTER 2021-03-27 17:43 | Emergency (ER) | payer MEDICARE, OTHER, SELFPAY ==
[2021-03-27 17:44] VITALS: BP 132/74; PULSE 95; RESP 16; TEMP 36.2; O2SAT 100; BMI 27.1
--- NOTE | 2021-03-27 18:18 | EX.ED.DYSGE1 ---
HPI History of Present Illness Chief Complaint: Nausea/Vomiting Informant: patient Onset/Context/Timing Onset: Days Context: Gradual Onset Timing: Continuous Quality: Loss of appetite, nausea and vomiting, positive Covid Location: GI predominantly Current Severity: Mild Maximum Severity: Severe Worsened by: Attempt to eat or drink anything Relieved by: Nothing Associated Symptoms Associated Symptoms: Orthostatic symptoms Narrative Narrative: Patient 70-year-old male with history of benign prostatic hypertrophy and who was well until he was diagnosed with Covid. Onset of his symptoms were 16 days ago. He states he feels weak, has no appetite. He has persistent loss of taste and smell. He has been vomiting 3-5 times per day for the past several days. He does report orthostatic symptoms. He denies hematemesis. He denies diarrhea today. He denies fever or chills. He denies headache. Denies ocular, visual auditory symptoms. He has an occasional cough. He denies dyspnea or dyspnea on exertion. Denies orthopnea or PND. He denies chest pain. He denies history of VTE. He denies leg pain, swelling discoloration. Prior similar symptoms: No Recent Illness/Hospitalization: Yes [facility] Medical History Benign prostatic hyperplasia Chest pain Hay fever Home Medications tamsulosin 0.4 mg PO DAILY 05/28/14 [History Last Taken Unknown] ibuprofen 200 mg capsule 200 mg PO Q6H PRN 11/05/20 [History Last Taken Unknown] ondansetron 4 mg PO Q8H PRN PRN #10 tab 03/27/21 [Rx Last Taken Unknown] Allergy/AdvReac Type Severity Reaction Status Date / Time Sulfa (Sulfonamide Allergy Unknown Verified 03/23/21 09:33 Antibiotics) AGUSTIN Allergy Angioedema Uncoded 03/23/21 09:33 PISTACHIO Allergy Angioedema Uncoded 03/23/21 09:33 Family History Mother Kidney disease Surgical History History of carpal tunnel release Social History (Updated 03/27/21 @ 18:[address] Jesus Schwab MD) household members: spouse Smoking Status: Never smoker substance use type: does not use ROS ROS ED Constitutional Constitutional ED: Reports weight loss; Denies chills, fever(s), subjective or sweats Eyes Eyes: Denies blurry vision, change in vision or diplopia ENT ENT ED: Reports other Details: Loss of taste and smell ; Denies ear pain, rhinorrhea or sore throat Cardiovascular Cardiovascular: Denies chest pain, orthopnea, palpitations or paroxysmal nocturnal dyspnea Respiratory/Chest Respiratory/Chest: Reports cough and sputum; Denies dyspnea, dyspnea on exertion, orthopnea or paroxysmal nocturnal dyspnea Gastrointestinal Gastrointestinal: Reports nausea and vomiting; Denies abdominal pain, constipation, diarrhea or melena Genitourinary Genitourinary ED: Denies dysuria, hematuria or urinary frequency Musculoskeletal Musculoskeletal: Denies arthralgias, back pain, myalgias or neck pain Integumentary Denies rash Neurologic Neurologic: Reports weakness; Denies headache(s) or paresthesias Endocrine Endocrinology: Denies polydipsia, polyphagia or polyuria Hematologic/Lymphatic Hematologic/Lymphatic: Denies anemia, easy bleeding or easy bruising Allergic/Immunologic Allergic/Immunologic ED: Denies mouth swelling EXAM Physical Exam Const Vital Signs: 03/27/21 17:44 03/27/21 18:23 Temperature 97.2 F L 101.2 F H Temperature Source Temporal Oral Pulse Rate 95 91 Respiratory Rate 16 20 H Blood Pressure 132/74 H 122/92 H Blood Pressure Mean 93 102 Pulse Ox 100 96 Oxygen Delivery Method Room Air Room Air Positive well nourished and well developed General Appearance ED: well developed and NAD; Negative for cyanotic, diaphoretic or pallor HEENT Reports TM's clear and dry mucous membranes HEENT Narrative: Nares patent. Posterior pharynx erythema exudate. Uvula midline. Negative for trauma or tenderness Tympanic Membrane ED: Yes TM's clear Mouth ED: Yes dry mucous membranes Mouth: dry mucous membranes Eyes PERRL and EOMs intact bilaterally General Eye ED: Negative for pale conjunctiva or scleral icterus Neck no lymphadenopathy, supple and no JVD Neck Narrative: Trachea and line. There is no cervical lymphadenopathy. General: Negative for tenderness Resp normal respiratory effort and clear to auscultation bilaterally Effort and Inspection: Negative for pain with movement Cardio regular rate, regular rhythm, S1 normal heart sound, S2 normal heart sound and no murmurs GI normal to inspection, nondistended, normoactive bowel sounds, non-tender and non-distended Palpation: soft Back/Spine no CVA tenderness Cervical Spine: Negative for cervical spine tenderness Thoracic Spine / Upper Back: Negative for thoracic spinal tenderness or paraspinal muscle tenderness Extremity normal to inspection General Extremety ED: Negative for edema or tenderness General Extremity: Negative for edema Neuro oriented x3, CN's II-XII intact bilaterally and no sensory deficits noted Sensorium / Orientation: alert Psych mental status grossly normal Skin no rashes or lesions noted and no wounds General Skin Exam: Negative for jaundice or pallor MDM MDM MDM Narrative Medical decision making narrative: Patient symptoms are consistent with Covid. Clinically is dehydrated. Basic metabolic panel was obtained to assess electrolytes, CO2 anion gap and renal function. CBC to rule out anemia and assess white count. 1 L of normal saline was ordered. 4 mg of Zofran was ordered. Patient was reassessed at 1913. His nausea has resolved. He is able to drink garcía fredy. If he is able to drink the entire can plan is to discharge with prescription for Zofran. Patient passed p.o. challenge. He was given acetaminophen for his temperature of 101.2 Lab Data Attestation: I reviewed the patient's lab results. Lab results narrative: Laboratory results are essentially unremarkable. Sodium is slightly low at 133 and glucose is slightly elevated 116. BUN is 20 which is high for patient. Creatinines up slightly however GFR is greater than 60. Labs: Laboratory Results - last 24 hr 03/27/21 03/27/21 18:20 18:20 WBC 8.4 RBC 4.35 L Hgb 14.4 Hct 40.8 MCV 93.8 MCH 33.1 H MCHC 35.3 RDW Std Deviation 39.6 RDW Coeff of Edson 11.5 L Plt Count 227 MPV 8.7 Immature Gran % (Auto) 0.400 Neut % (Auto) 73.9 H Lymph % (Auto) 15.4 L [place] % (Auto) 10.0 Eos % (Auto) 0.1 Baso % (Auto) 0.2 Absolute Neuts (auto) 6.2 Absolute Lymphs (auto) 1.29 Nucleated RBC % 0 Sodium 133 L Potassium 3.9 Chloride 99 Carbon Dioxide 27.0 Anion Gap 7 BUN 20 H Creatinine 1.12 Estim Creat Clear Calc 64.43 Est GFR (MDRD) Af Amer 83 Est GFR (MDRD) Non-Af 69 BUN/Creatinine Ratio 17.9 Glucose 116 H Calcium 8.8 Rhythm Strip Rhythm Strip: Sinus Rhythm (Rate is 93. There is no ectopy.) Ectopy: None Discharge Plan Triage Chief Complaint: Nausea/Vomiting ED Provider: Jesus Schwab Dx/Rx/DC Orders Clinical Impression: Nausea & vomiting, COVID-19, Dehydration, mild, Fever Instructions: ED Diet for Vomiting or ... Prescriptions: New ondansetron [ondansetron] 4 MG tablet 4 mg PO Q8H PRN PRN (Reason: Nausea) Qty: 10 RF: 0 No Action ibuprofen 200 mg capsule 200 mg PO Q6H PRN (Reason: Fever) RF: 0 tamsulosin 0.4 MG capsule 0.4 mg PO DAILY RF: 0 Primary Care Provider: Yudelka Sheikh NP Referrals: Yudelka Sheikh HOUSEKEEPING STAFF, HOUSEKEEPING STAFF-C [Primary Care Provider] - 3-5 Days if not improving Disposition Disposition: Home, Self Care
[2021-03-27] MEDS: 0.9% Normal Saline 1,000 ML 1000 ML IV (18:21)
[2021-03-27] MEDS: Ondansetron 4 MG/2 ML Vial IV (18:21)
[2021-03-27 18:23] VITALS: BP 122/92; PULSE 91; RESP 20; TEMP 38.4; O2SAT 96
[2021-03-27 18:25] LABS: Absolute Lymphocyte Count 1.29 X10^3/uL (0.83-4.51); Absolute Neutrophil Count 6.2 X10^3/uL (2.0-7.7); Basophil# 0.02 X10^3/uL; Basophil% 0.2 % (0-1); Eosinophil# 0.01 X10^3/uL; Eosinophils% 0.1 % (0-5); Hematocrit 40.8 % (40-54); Hemoglobin 14.4 g/dL (13.0-16.5); Lymphocyte # 1.29 X10^3/ul (0.83-4.51); Lymphocyte % 15.4 % (19-41); Mean Corp Hgb Conc 35.3 g/dL (32-36); Mean Corpuscular Hgb 33.1 pg (27.0-32.0); Mean Corpuscular Volume 93.8 fL (80-94); Mean Platelet Vol. 8.7 fl (6.2-12.0); Monocyte# 0.84 X10^3/uL; NRBC Flagged by Analyzer 0 % (0-5); Neutrophil # 6.19 X10^3/uL (2.7-7.7); Neutrophil % 73.9 % (47-70); Platelet Count 227 K/mm3 (150-450); RBC Distribution Width CV 11.5 % (11.6-14.6); RBC Distribution Width SD 39.6 fl (35.1-43.9); Red Blood Count 4.35 M/mm3 (4.6-6.2); White Blood Count 8.4 K/mm3 (4.4-11.0)
[2021-03-27 18:37] LABS: Anion Gap 7 (5-15); BUN 20 mg/dL (7-18); BUN/Creat Ratio 17.9 RATIO (10-20); Calcium,Total 8.8 mg/dL (8.5-10.1); Chloride 99 mmol/L (98-107); Creatinine, Serum 1.12 mg/dL (0.70-1.30); EST Glomerular Filtration Rate 69 mL/min (>60); Est Glom Filt Rate - Afr Amer 83 mL/min (>60); Estimated Creatinine Clearance 64.43 ml/min; Glucose 116 mg/dL (74-106); Potassium 3.9 mmol/L (3.5-5.1); Sodium Level 133 mmol/L (136-145)
[2021-03-27] MEDS: Acetaminophen 325 MG Tablet 650 MG PO (18:51)
[2021-03-27 19:37] VITALS: BP 125/76; PULSE 62; RESP 15; O2SAT 98
== END 2021-03-27 20:26 | disposition home or self-care (01) ==
PROVIDERS: Emergency Provider Emergency Medicine; PCP Nurse Practitioner; Visit Provider Emergency Medicine
DX: U07.1 COVID-19 (principal); E86.0 Dehydration; N40.0 Benign prostatic hyperplasia without lower urinary tract symptoms; Z79.899 Other long term (current) drug therapy
CPT/HCPCS: 80048; 85025; 96361; 96374; 99283; J7030; J2405

== ENCOUNTER 2021-03-30 09:39 | Outpatient (CLI) | payer MEDICARE, OTHER, SELFPAY ==
--- NOTE | 2021-03-30 09:42 | RAD_ITS ---
STUDY: X-RAY CHEST REASON FOR EXAM: Male, 70 years old. COUGH TECHNIQUE: PA and lateral views of the chest. COMPARISON: No prior studies available for comparison. FINDINGS: There is evidence of a peripheral infiltration in the left hemithorax. Mild degree of right peripheral infiltration. There is no demonstrated pleural abnormality. Normal size heart. Normal mediastinum and iveth. Normal visualized pulmonary arteries. Normal visualized aortic arch and descending thoracic aorta. Normal visualized thoracic spine. Normal visualized ribs, clavicles, and shoulders. There is no demonstrated abnormality of the visualized soft tissue structures of the upper abdomen. RAD/Chest PA and Lateral IMPRESSION: Bilateral pulmonary infiltrates in the preferential peripheral distribution worse in the left hemithorax. This is suggestive of pneumonitis associated with Covid. Electronically Signed: Grady Cooper MD at 10:34 EST ,
== END 2021-03-30 23:59 | disposition home or self-care (01) ==
LOC: MTRAD 09:41
PROVIDERS: PCP Nurse Practitioner; Referring Provider Internal Medicine; Visit Provider Internal Medicine
DX: R05.9 Cough, unspecified (principal)
CPT/HCPCS: 71046

== ENCOUNTER → 2021-06-27 | Outpatient (CLI) | payer MEDICARE, OTHER, SELFPAY ==
[2021-06-27 09:22] LABS: Erythrocyte Sedimentation Rate 10 mm/hr (0-20)
[2021-06-27 09:23] LABS: Absolute Lymphocyte Count 1.91 X10^3/uL (0.83-4.51); Absolute Neutrophil Count 2.3 X10^3/uL (2.0-7.7); Basophil# 0.04 X10^3/uL; Basophil% 0.8 % (0-1); Eosinophils% 5.9 % (0-5); Hematocrit 41.2 % (40-54); Hemoglobin 13.7 g/dL (13.0-16.5); Lymphocyte # 1.91 X10^3/ul (0.83-4.51); Lymphocyte % 37.7 % (19-41); Mean Corp Hgb Conc 33.3 g/dL (32-36); Mean Corpuscular Volume 96.3 fL (80-94); Mean Platelet Vol. 9.7 fl (6.2-12.0); Monocyte# 0.47 X10^3/uL; Monocyte% 9.3 % (0-10); NRBC Flagged by Analyzer 0 % (0-5); Neutrophil # 2.32 X10^3/uL (2.7-7.7); Neutrophil % 45.9 % (47-70); Platelet Count 263 K/mm3 (150-450); RBC Distribution Width CV 12.2 % (11.6-14.6); RBC Distribution Width SD 42.9 fl (35.1-43.9); Red Blood Count 4.28 M/mm3 (4.6-6.2); White Blood Count 5.1 K/mm3 (4.4-11.0)
[2021-06-27 09:39] LABS: Microalbumin,Random Urine 5.9 mg/L (NO RANGE EST.); Microalbumin:Creatinine Ratio 6.9 mg/g CRE (<30 mg/g CRE)
[2021-06-27 09:40] LABS: Hemoglobin A1c 5.3 % (3.8-5.6)
[2021-06-27 09:47] LABS: AST(SGOT) 31 U/L (15-37); Alanine Aminotransfer ALT/SGPT 33 U/L (16-61); Albumin, Serum 3.6 g/dL (3.2-5.0); Alkaline Phosphatase 75 U/L (45-117); Anion Gap 4 (5-15); BUN 14 mg/dL (7-18); CRP < 2.90 mg/L (0.0-3.0); Calcium,Total 8.8 mg/dL (8.5-10.1); Chloride 108 mmol/L (98-107); Cholesterol 228 mg/dL (200); Creatinine, Serum 1.17 mg/dL (0.70-1.30); EST Glomerular Filtration Rate 65 mL/min (>60); Est Glom Filt Rate - Afr Amer 79 mL/min (>60); Globulin 3.5 g/dL (2.2-4.2); Glucose 100 mg/dL (74-106); High Density Lipoprotein 77 mg/dL; PSA,Total - Annual Screen 3.89 ng/mL (0.00-4.00); Protein, Total 7.1 g/dL (6.4-8.2); Sodium Level 140 mmol/L (136-145); Thyroid Stim Hormone (TSH) 2.25 uIU/mL (0.358-3.74); Triglycerides 71 mg/dL; Very Low Density Lipoprotein 14 mg/dL (5-40)
[2021-06-29 15:22] LABS: ANTINUCLEAR ANTIBODIES DIRECT Negative (Negative)
[2021-07-01 12:09] LABS: Testosterone, Free 14.11 ng/dL (5.00-21.00)
[2021-07-01 16:52] LABS: Testosterone, % Free 2.97 % (1.50-4.20); Testosterone, Total 475 ng/dL (264-916)
== END | disposition home or self-care (01) ==
LOC: LAB 08:27
PROVIDERS: PCP Internal Medicine; Visit Provider Internal Medicine
DX: R61 Generalized hyperhidrosis (principal); R73.01 Impaired fasting glucose; E78.00 Pure hypercholesterolemia, unspecified; Z12.5 Encounter for screening for malignant neoplasm of prostate
CPT/HCPCS: 36415; 80053; 80061; 82043; 82570; 83036; 84153; 84402; 84403; 84443; 85025; 85652; 86038; 86140; G0103

== ENCOUNTER → 2021-08-17 | Outpatient (CLI) | payer MEDICARE, OTHER, SELFPAY ==
[2021-08-18 09:03] LABS: Hepatitis C Antibody Non-Reactive (Nonreactive)
[2021-08-20 13:07] LABS: QNTFERON TB Mitogen Value > 10.00 IU/mL (.); QNTFERON TB Nil Value 0.07 IU/mL (.); QNTFERON TB1+ Ag Value 0.11 IU/mL (.); QNTFERON TB2+ Ag Value 0.11 IU/mL (.)
[2021-08-20 15:49] LABS: QNTIFERON TB Positive Criteria Negative (Negative)
== END | disposition home or self-care (01) ==
LOC: MTLAB 16:50
PROVIDERS: PCP Internal Medicine; Referring Provider Internal Medicine; Visit Provider Internal Medicine
DX: R61 Generalized hyperhidrosis (principal); Z11.59 Encounter for screening for other viral diseases
CPT/HCPCS: 36415; 86480; 86803

== ENCOUNTER 2022-11-04 16:54 | Emergency (ER) | payer OTHER, MEDICARE, SELFPAY ==
[2022-11-04 16:55] VITALS: BP 146/84; PULSE 67; RESP 16; TEMP 36.5; O2SAT 98; BMI 27.9
--- NOTE | 2022-11-04 17:14 | EDS_ITS ---
HPI History of Present Illness Chief Complaint: Lower Extremity Injury Informant: patient Narrative Narrative: Presents for a work injury evaluation. 5 AM walk across the parking lot in the dark, there was an I-beam which he hit his knee tripped over falling on his knee and top of his head. Scalp abrasion controlled with bandages. He is able to work throughout the day however pain in his right knee. Ibuprofen taken 3 hours ago. He finished work and came for evaluation. Tetanus unknown. No anticoagulation medicines. No headache. No nausea or vomiting. Tetanus Immunization: Unknown [facility] Medical History Benign prostatic hyperplasia Chest pain Hay fever Home Medications ibuprofen 200 mg capsule 200 mg PO Q6H PRN Fever 11/05/20 [History Last Taken Unknown] ondansetron 4 mg disintegrating tablet 4 mg PO Q8H PRN PRN Nausea #10 tabs 03/27/21 [Rx Last Taken Unknown] benzonatate 100 mg capsule 100 mg PO BID-TID PRN cough #30 caps 05/21/22 [Rx Last Taken Unknown] tamsulosin 0.4 mg capsule 0.4 mg PO DAILY 05/21/22 [History Last Taken Unknown] Allergy/AdvReac Type Severity Reaction Status Date / Time cathryn Allergy Angioedema Verified 11/04/22 16:56 pistachio nut Allergy Angioedema Verified 11/04/22 16:56 Sulfa (Sulfonamide Allergy Unknown Verified 11/04/22 16:56 Antibiotics) Family History Mother Kidney disease Surgical History History of carpal tunnel release Social History household members: spouse Smoking Status: Never smoker substance use type: does not use ROS ROS ED Constitutional Constitutional ED: Denies chills, fever(s) or sweats Eyes Eyes: Denies change in vision ENT ENT ED: Denies dysphagia or sore throat Cardiovascular Cardiovascular: Denies chest pain, leg edema, palpitations or racing heartbeat Respiratory/Chest Respiratory/Chest: Denies cough, dyspnea or dyspnea on exertion Gastrointestinal Gastrointestinal: Denies abdominal pain, diarrhea, nausea or vomiting Genitourinary Genitourinary ED: Denies dysuria, hematuria or urinary frequency Musculoskeletal Musculoskeletal: Reports extremity pain; Denies back pain or neck pain Integumentary Reports Abrasions; Denies rash or wounds Neurologic Neurologic: Denies headache(s), paresthesias or weakness EXAM Physical Exam Const Vital Signs: 11/04/22 16:55 11/04/22 18:27 Temperature 97.7 F L Temperature Source Temporal Pulse Rate 67 74 Respiratory Rate 16 16 Blood Pressure 146/84 H Blood Pressure Mean 104 Pulse Ox 98 97 Oxygen Delivery Method Room Air Positive well nourished and well developed Constitutional Narrative: GCS 15. General Appearance ED: well developed and NAD HEENT Reports moist mucous membranes HEENT Narrative: 2 bandages frontal scalp clean, dry, intact. normocephalic Eyes PERRL, EOMs intact bilaterally and conjunctivae normal General Eye ED: Yes normal appearance of both eyes Neck no lymphadenopathy and supple General: Negative for tenderness Chest Wall inspection of chest normal and palpation of chest normal Chest: Negative for tenderness Resp normal respiratory effort and normal air movement Effort and Inspection: symmetric chest movement; Negative for respiratory distress Cardio regular rate, regular rhythm and no murmurs Peripheral Pulses: pulses 2+ throughout GI normal to inspection, nondistended, normoactive bowel sounds and non-tender Palpation: Negative for guarding or rebound tenderness present Back/Spine no CVA tenderness and no thoracic nor lumbar tenderness Extremity Extremity Narrative: Lower extremity negative logroll knee extensor intact. Negative varus and valgus positive Megha's with valgus stress. No patellar tenderness. General Extremety ED: Negative for edema or tenderness General Extremity: Negative for edema Neuro oriented x3, CN's II-XII intact bilaterally and no sensory deficits noted Sensorium / Orientation: awake and alert Skin no rashes or lesions noted and no wounds MDM MDM MDM Narrative Medical decision making narrative: Interventions / MDM: Differential diagnosis: Knee sprain, meniscus injury, scalp abrasion Diagnosis considered but do not suspect: Intracranial hemorrhage however nexus CT head criteria negative. My EKG interpretation: N/A Imaging independently reviewed and interpreted by myself: Right knee 4 views: No fracture or dislocation. External documents reviewed: N/A Test considered but not ordered:N/A ED course: Patient mechanical fall knee injury. Took ibuprofen 3 hours prior to arrival. Nexus CT head criteria negative. Tetanus updated. X-ray right knee obtain. Knee x-ray negative. Herminio wrap placed to the knee. Appropriate work restrictions given. Follow-up with occupational health. Continue ibuprofen. Re-evaluation: stable Disposition discussed with patient/family/significant other: Patient Case discussed with consulting clinician: N/A This note was generated with [employer] dictation software. It may contain incorrect words, spelling, and punctuation that were not noted in checking the note before signing. Radiography Diagnostic Testing: Clinical Impression(s) from Imaging Studies Knee X-Ray 11/04/22 17:24 IMPRESSION: Degenerative change. No acute fracture or other significant bony pathology Electronically Signed: Wild Wilkinson MD at 17:40 EDT , Discharge Plan Triage Chief Complaint: Lower Extremity Injury ED Provider: Roman Gonzalez Dx/Rx/DC Orders Clinical Impression: Abrasion of scalp, Acute internal derangement of right knee, Tetanus toxoid vaccination administered at current visit Instructions: ED Abrasion, ED Meniscal Injury Knee Poss Prescriptions: No Action ibuprofen 200 mg capsule 200 mg PO Q6H PRN (Reason: Fever) benzonatate 100 mg capsule 100 mg PO BID-TID PRN (Reason: cough) Qty: 30 0RF tamsulosin 0.4 mg capsule 0.4 mg PO DAILY Patient Comments: ondansetron [ondansetron] 4 MG tablet 4 mg PO Q8H PRN PRN (Reason: Nausea) Qty: 10 0RF Primary Care Provider: Anna Fernandez Referrals: Anna Fernandez MD [Primary Care Provider] - Activity Restrictions/Additional Instructions: Right knee x-ray negative. Exam concerns for meniscus injury. Continue ibuprofen up to 600 mg every 6 hours as needed. Maintain Herminio wrap. Work restrictions as provided. Follow-up with occupational health. Disposition Disposition: Home, Self Care Discharge Date/Time: 11/04/22 18:46
[2022-11-04] MEDS: Diphth,Pertuss(Acell),Tet Vac 0.5 ML Vial IM (17:19)
--- NOTE | 2022-11-04 17:24 | RAD_ITS ---
STUDY: X-RAY - RIGHT KNEE REASON FOR EXAM: Male, 72 years old. injury TECHNIQUE: 4 view(s) of the knee. COMPARISON: None. FINDINGS: Normal visualized distal femur. Normal visualized proximal tibia and fibula. Normal proximal tibiofibular articulation. Narrowed medial femorotibial compartment. Normal lateral femorotibial compartment. Narrowing of the lateral compartment of the patellofemoral articulation. The soft tissue structures are unremarkable. RAD/Knee 4 or More Views IMPRESSION: Degenerative change. No acute fracture or other significant bony pathology Electronically Signed: Wild Wilkinson MD at 17:40 EDT ,
[2022-11-04 18:27] VITALS: PULSE 74; RESP 16; O2SAT 97
== END 2022-11-04 18:46 | disposition home or self-care (01) ==
PROVIDERS: Emergency Provider Emergency Medicine; PCP Internal Medicine; Visit Provider Emergency Medicine
DX: S00.01XA Abrasion of scalp, initial encounter (principal); M23.91 Unspecified internal derangement of right knee; N40.0 Benign prostatic hyperplasia without lower urinary tract symptoms; Z79.899 Other long term (current) drug therapy; Z23 Encounter for immunization; W17.89XA Other fall from one level to another, initial encounter; Y93.01 Activity, walking, marching and hiking; Y99.0 Civilian activity done for income or pay; Y92.481 Parking lot as the place of occurrence of the external cause
CPT/HCPCS: 73564; 90715; 99282

== ENCOUNTER → 2022-11-27 | Outpatient (CLI) | payer MEDICARE, OTHER, SELFPAY ==
[2022-11-27 08:28] LABS: Color, Urine Yellow (Yellow); Glucose, Dipstick Normal (Normal); Ketone-Dipstick Negative (Negative); Leukocyte Esterase-Dipstick Negative /ul (Negative); Nitrite-Dipstick Negative (Negative); Occult Blood-Urine Negative /ul (Negative); Protein-Dipstick Negative (Negative); Specific Gravity, Urine 1.015 (1.002-1.030); Urine Bilirubin Dipstick Negative (Negative); Urine Clarity Clear (Clear); Urine Urobilinogen Normal (Normal)
[2022-11-27 08:29] LABS: Absolute Lymphocyte Count 2.25 X10^3/uL (0.83-4.51); Absolute Neutrophil Count 2.7 X10^3/uL (2.0-7.7); Basophil# 0.05 X10^3/uL; Basophil% 0.8 % (0-1); Eosinophil# 0.36 X10^3/uL; Hematocrit 41.6 % (40-54); Hemoglobin 13.8 g/dL (13.0-16.5); Lymphocyte # 2.25 X10^3/ul (0.83-4.51); Lymphocyte % 37.4 % (19-41); Mean Corp Hgb Conc 33.2 g/dL (32-36); Mean Corpuscular Hgb 32.1 pg (27.0-32.0); Mean Corpuscular Volume 96.7 fL (80-94); Mean Platelet Vol. 9.2 fl (6.2-12.0); Monocyte# 0.65 X10^3/uL; Monocyte% 10.8 % (0-10); NRBC Flagged by Analyzer 0 % (0-5); Neutrophil # 2.69 X10^3/uL (2.7-7.7); Neutrophil % 44.8 % (47-70); Platelet Count 260 K/mm3 (150-450); RBC Distribution Width CV 11.9 % (11.6-14.6); RBC Distribution Width SD 42.1 fl (35.1-43.9)
[2022-11-27 09:04] LABS: ALB/GLOB Ratio 1.1 RATIO (0.9-2.4); AST(SGOT) 25 U/L (15-37); Alanine Aminotransfer ALT/SGPT 36 U/L (16-61); Albumin, Serum 3.6 g/dL (3.2-5.0); Alkaline Phosphatase 79 U/L (45-117); Anion Gap 5 (5-15); BUN 16 mg/dL (7-18); BUN/Creat Ratio 15.7 RATIO (10-20); Calcium,Total 8.9 mg/dL (8.5-10.1); Chloride 109 mmol/L (98-107); Cholesterol 211 mg/dL (200); Creatinine, Serum 1.02 mg/dL (0.70-1.30); EST Glomerular Filtration Rate 76 mL/min (>60); Est Glom Filt Rate - Afr Amer 92 mL/min (>60); Globulin 3.3 g/dL (2.2-4.2); Glucose 99 mg/dL (74-106); High Density Lipoprotein 72 mg/dL; PSA,Total - Annual Screen 4.93 ng/mL (0.00-4.00); Protein, Total 6.9 g/dL (6.4-8.2); Sodium Level 140 mmol/L (136-145); Triglycerides 89 mg/dL; Very Low Density Lipoprotein 18 mg/dL (5-40)
== END | disposition home or self-care (01) ==
LOC: LAB 07:54
PROVIDERS: PCP Internal Medicine; Visit Provider Nurse Practitioner Family
DX: Z12.5 Encounter for screening for malignant neoplasm of prostate (principal); E78.00 Pure hypercholesterolemia, unspecified; G93.32 Myalgic encephalomyelitis/chronic fatigue syndrome; N40.0 Benign prostatic hyperplasia without lower urinary tract symptoms
CPT/HCPCS: 36415; 80053; 80061; 81002; 84153; 85025; G0103